=== PATIENT | female | born 2000 | race Caucasian/White ===

== ENCOUNTER 2022-02-11 10:11 | Emergency (ER) | payer OTHER, SELFPAY ==
[2022-02-11 10:18] VITALS: BP 134/92; PULSE 76; RESP 14; TEMP 36.9; O2SAT 99; BMI 27.4
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
[2022-02-11 11:02] VITALS: BP 143/96; O2SAT 99
[2022-02-11 11:49] VITALS: BP 151/88; PULSE 98; O2SAT 97
== END 2022-02-11 11:51 | disposition home or self-care (01) ==
PROVIDERS: Emergency Provider Physician Assistant; PCP Registered Nurse
DX: S13.9XXA Sprain of joints and ligaments of unspecified parts of neck, initial encounter (principal); V49.49XA Driver injured in collision with other motor vehicles in traffic accident, initial encounter
CPT/HCPCS: 72040; 99283

== ENCOUNTER 2022-03-20 16:41 | Emergency (ER) | payer OTHER, SELFPAY ==
[2022-03-20 17:19] VITALS: BP 134/90; PULSE 81; RESP 14; TEMP 36.9; O2SAT 99; BMI 29.6
--- NOTE | 2022-03-20 21:11 | USR_ITS ---
PROCEDURE INFORMATION: Exam: US Abdomen, Limited; Right Upper Quadrant Exam date and time: 03/20/2022 9:27 PM Age: 21 years old Clinical indication: Abdominal pain; Patient HX: Intermittent ruq pain x 1 month TECHNIQUE: Imaging protocol: Real time ultrasound of the abdomen with image documentation. Limited exam focused on the right upper quadrant. COMPARISON: No relevant prior studies available. FINDINGS: Liver: Normal. No masses. Gallbladder: Contracted gallbladder. No gallstones. There is no gallbladder wall thickening. Negative sonographic Huber sign. Biliary ducts: Normal. No stones. No dilation. Pancreas: Visualized pancreas is unremarkable. Right kidney: Right kidney measures 10.1 cm in length. No mass. No hydronephrosis. US/US gall bladder [id number] IMPRESSION: No acute findings.
--- NOTE | 2022-03-20 21:12 | ED_ITS ---
HPI - Nausea/Vomiting/Diarrhea General: Chief complaint: Nausea/Vomiting/Diarrhea Stated complaint: Abd pains with lower back pains N/V Time Seen by Provider: 03/20/22 21:09 History of Present Illness: 21-year-old female comes in today with complaints of epigastric pain radiating to her back. This is been going on for about 2 to 3 weeks. Patient was seen by a primary care provider in [place] and recommended that she have an gallbladder ultrasound done. Patient did not think that she could wait 2 weeks to have the ultrasound and came to the emergency room for further evaluation and treatment. Patient appears nontoxic. Patient appears in mild pain. Patient has no history of medical problems or routine medications. Patient has tried some [id number] Lactaid and Gas-X with minimal relief of discomfort. Associated nausea: Yes Associated symtoms: Reports nausea Review of Systems General: Reports: 10 or more systems reviewed and unremarkable except in HPI and below GI: Reports: abdominal pain and nausea : Denies: difficulty voiding Physical Exam Const: COMMON NORMALS: alert Neck/C-Spine: COMMON NORMALS: full ROM Chest: COMMONS NORMALS: normal inspection of the chest and normal palpation of the breasts BREAST/AXILLA PALPATION: Yes normal palpation of the breasts Resp: COMMON NORMALS: normal respiratory effort and clear to auscultation bilaterally AUSCULTATION: clear to auscultation bilaterally Cardio: COMMON NORMALS: regular rate and regular rhythm RATE: regular rate RHYTHM: regular rhythm GI: COMMON NORMALS: Soft to palpation PALPATION: Yes Soft to palpation and Yes Tenderness to palpation present (GI) (Midepigastric) : COMMON NORMALS: Yes no CVA tenderness BLADDER/KIDNEY EXAM: Yes no CVA tenderness Back/Pelvis: COMMON NORMALS: no CVA tenderness Extremity: COMMON NORMALS: normal to inspection Neuro: SENSORIUM/ORIENTATION: Yes alert Skin: COMMON NORMALS: no rashes or lesions noted GENERAL SKIN EXAM: no rashes or lesions noted Course Vital Signs: Vital signs: Vital Signs Temperature 98.4 F 03/20/22 17:19 Pulse Rate 78 03/20/22 23:24 Respiratory Rate 18 03/20/22 23:24 Blood Pressure 140/88 03/20/22 23:24 Pulse Oximetry 98 03/20/22 23:24 MDM - Nausea/Vomiting/Diarrhea Medical Decision Making 21-year-old female comes in today with some midepigastric discomfort. Patient reports symptoms for the last month with episodes of diarrhea too abdomen is soft with some epigastric tenderness. Vital signs are normal. Patient appears nontoxic. Patient appears in no pain. Differential diagnosis includes but not limited to cholecystitis, gallbladder disease, gastritis, esophagitis, hiatal hernia. Laboratory values were unremarkable. Ultrasound the gallbladder was normal. Reviewed exam with patient recommended treatment with famotidine 20 mg twice a day for the next 4 weeks for trial. Recommend continue with care with primary provider and consider further treatment options. No sign of acute surgical abdomen is noted. Lab Data : 03/20/22 21:16 03/20/22 21:16 Radiology Impressions Gallbladder Ultrasound 03/20/22 21:11 IMPRESSION: No acute findings. Laboratory Results WBC 10.7 10^3/uL (4.0-10.0) H 03/20/22 21:16 RBC 4.40 10^6/uL (4.1-5.3) 03/20/22 21:16 Hgb 12.5 g/dL (11.5-15.3) 03/20/22 21:16 Hct 38.4 % (37.0-47.0) 03/20/22 21:16 MCV 87.3 fl (81-99) 03/20/22 21:16 MCH 28.4 pg (28.0-34.0) 03/20/22 21:16 MCHC 32.6 g/dL (30.0-36.0) 03/20/22 21:16 RDW 12.1 % (12.1-15.1) 03/20/22 21:16 Plt Count 375 10^3/cmm (130-400) 03/20/22 21:16 MPV 10.3 fL (7.4-10.4) 03/20/22 21:16 Neut % (Auto) 47.5 % 03/20/22 21:16 Lymph % (Auto) 37.5 % 03/20/22 21:16 [place] % (Auto) 6.7 % 03/20/22 21:16 Eos % (Auto) 7.5 % 03/20/22 21:16 Baso % (Auto) 0.5 % 03/20/22 21:16 Neut # (Auto) 5.09 10^3/uL (1.8-7.7) 03/20/22 21:16 Lymph # (Auto) 4.0 10^3/uL (0.8-4.8) 03/20/22 21:16 [place] # (Auto) 0.7 10^3/uL (0.2-0.9) 03/20/22 21:16 Eos # (Auto) 0.8 10^3/uL (0.0-0.8) 03/20/22 21:16 Baso # (Auto) 0.1 10^3/uL (0.0-0.1) 03/20/22 21:16 Nucleated RBC % (auto) 0 % 03/20/22 21:16 Nucleated RBCs # 0.0 /100WBC 03/20/22 21:16 Sodium 139 mmol/L (136-145) 03/20/22 21:16 Potassium 3.5 mmol/L (3.5-5.1) 03/20/22 21:16 Chloride 102 mmol/L (98-107) 03/20/22 21:16 Carbon Dioxide 26 mmol/L (22-29) 03/20/22 21:16 Anion Gap 14.5 (5-19) 03/20/22 21:16 BUN 8 mg/dL (6-20) 03/20/22 21:16 Creatinine 0.8 mg/dL (0.5-0.9) 03/20/22 21:16 GFR Calculation 88.9 mL/min (90-130) L 03/20/22 21:16 Glucose 105 mg/dL (65-115) 03/20/22 21:16 Calculated Osmolality 287 mOsm/kg (285-295) 03/20/22 21:16 Calcium 9.5 mg/dL (8.5-10.5) 03/20/22 21:16 Total Bilirubin 0.2 mg/dL (0.15-1.2) 03/20/22 21:16 AST 25 U/L (0-32) 03/20/22 21:16 ALT 18 U/L (0-33) 03/20/22 21:16 Alkaline Phosphatase 62 IU/L (35-105) 03/20/22 21:16 Total Protein 7.9 g/dL (6.6-8.7) 03/20/22 21:16 Albumin 5.0 g/dL (3.5-5.2) 03/20/22 21:16 Globulin 2.9 g/dL (1.3-4.6) 03/20/22 21:16 Lipase 32 U/L (13-60) 03/20/22 21:16 Lipase Cancelled 03/20/22 21:16 HCG, Qual Negative (Negative) 03/20/22 21:16 Urine Color Yellow (Yellow) 03/20/22 22:37 Urine Appearance Clear (CLEAR) 03/20/22 22:37 Urine pH 6 (5-7) 03/20/22 22:37 Ur Specific [place] 1.020 (1.005-1.030) 03/20/22 22:37 Urine Protein Neg (Negative) 03/20/22 22:37 Urine Glucose (UA) Norm (Normal) 03/20/22 22:37 Urine Ketones Negative (Negative) 03/20/22 22:37 Urine Blood 3+ (Negative) H 03/20/22 22:37 Urine Nitrate Negative (Negative) 03/20/22 22:37 Urine Bilirubin Neg (Negative) 03/20/22 22:37 Urine Urobilinogen Norm mg/dL (Negative) 03/20/22 22:37 Ur Leukocyte Esterase Negative (Negative) 03/20/22 22:37 Urine RBC 0-4 /hpf (0-2) H 03/20/22 22:37 Urine WBC 0-4 /hpf (0-5) H 03/20/22 22:37 Ur Squamous Epith Cells 0-4 /hpf (0-5) H 03/20/22 22:37 Amorphous Sediment Not Reportable 03/20/22 22:37 Urine Bacteria Trace /hpf (NONE) 03/20/22 22:37 Discharge Plan Discharge Patient Disposition: Home Clinical Impression: Abdominal pain Qualifiers: Abdominal location: epigastric Qualified Code(s): R10.13 - Epigastric pain Condition: Stable Prescriptions: New famotidine 20 mg tablet 20 mg PO BID 28 Days Qty: 56 0RF No Action bupropion HCl 150 mg tablet sustained-release 12 hr 150 mg PO QAM 0RF Discharge Orders: Discharge ED (Routine); Ordered 03/20/22 Ordered By: Teto Shaw Referrals: Chayo Spencer FNP [Primary Care Provider] - Discharge Diet: Usual diet Discharge Activity: Increase activity as tolerated Patient Instructions: Abdominal Pain (ED) Activity Restrictions/Additional Instructions: Home and rest. Drink plenty of fluids. Continue with routine care. Add famot idine 20 mg 1 tablet twice a day for the next 4 weeks. He should see improvement within the next 5 to 7 days for symptoms. If symptoms persist talk to your primary care and they may switch medications for better coverage. Return to ER for new concerns, or worsening symptoms such as high fever greater than 100.4, uncontrolled abdominal pain, blood in vomit or stool. Coding Level of Care Code ED Product/Industry Consultant for Carlin Fwd Exam Comprehensive
[2022-03-20 21:32] VITALS: BP 143/92; PULSE 70; RESP 18; O2SAT 99
[2022-03-20 21:33] LABS: Basophils # 0.1 10^3/uL (0.0-0.1); Basophils % 0.5 %; Eosinophils # 0.8 10^3/uL (0.0-0.8); Eosinophils % 7.5 %; Hematocrit 38.4 % (37.0-47.0); Hemoglobin 12.5 g/dL (11.5-15.3); Lymphocytes % 37.5 %; Mean Corpuscular HGB Conc 32.6 g/dL (30.0-36.0); Mean Corpuscular Hemoglobin 28.4 pg (28.0-34.0); Mean Corpuscular Volume 87.3 fl (81-99); Mean Platelet Volume 10.3 fL (7.4-10.4); Monocytes # 0.7 10^3/uL (0.2-0.9); Monocytes % 6.7 %; Neutrophils # 5.09 10^3/uL (1.8-7.7); Neutrophils % 47.5 %; Nucleated Red Blood Cells % 0 %; Platelet Count 375 10^3/cmm (130-400); Red Cell Distribution Width 12.1 % (12.1-15.1); White Blood Count 10.7 10^3/uL (4.0-10.0)
[2022-03-20 22:02] LABS: HCG, Serum Qual Negative (Negative)
[2022-03-20 22:10] LABS: Alanine Aminotransferase 18 U/L (0-33); Alkaline Phosphatase 62 IU/L (35-105); Anion Gap 14.5 (5-19); Aspartate Amino Transferase 25 U/L (0-32); Blood Urea Nitrogen 8 mg/dL (6-20); Calcium 9.5 mg/dL (8.5-10.5); Carbon Dioxide 26 mmol/L (22-29); Chloride 102 mmol/L (98-107); Globulin 2.9 g/dL (1.3-4.6); Glomerular Filtration Rate 88.9 mL/min (90-130); Glucose 105 mg/dL (65-115); Lipase 32 U/L (13-60); Osmolality Calculated 287 mOsm/kg (285-295); Potassium 3.5 mmol/L (3.5-5.1); Sodium 139 mmol/L (136-145); Total Bilirubin 0.2 mg/dL (0.15-1.2); Total Protein 7.9 g/dL (6.6-8.7)
[2022-03-20 22:40] VITALS: BP 143/92; RESP 20; O2SAT 98
[2022-03-20 23:10] LABS: Add Urine Culture? No; Add Urine Microscopic? YES; Bacteria Urine TRACE /hpf; Bilirubin Urine Neg (Negative); Blood Urine 3+ (Negative); Glucose Urine UA Norm (Normal); Ketones Urine Negative (Negative); Leukocyte Esterase Urine Negative (Negative); Nitrate Urine Negative (Negative); Protein Urine Neg (Negative); RBC Urine 0-4 /hpf (0-2); Squamous Epithelial Cell Urine 0-4 /hpf (0-5); Urine Appearance Clear (CLEAR); Urine Color Yellow (Yellow); Urobilinogen Urine Norm (Negative); WBC Urine 0-4 /hpf (0-5); pH Urine 6 (5-7)
[2022-03-20] MEDS: famotidine 20 mg/2 mL INJ IVP (23:12)
[2022-03-20 23:24] VITALS: BP 140/88; PULSE 78; RESP 18; O2SAT 98
== END 2022-03-20 23:26 | disposition home or self-care (01) ==
PROVIDERS: Emergency Medicine; Emergency Provider Nurse Practitioner Family; PCP Registered Nurse
DX: R10.13 Epigastric pain (principal)
CPT/HCPCS: 76705; 80053; 81001; 83690; 84703; 85025; 96374; 99285; J3490

== ENCOUNTER 2022-09-29 07:47 | Outpatient (CLI) | payer OTHER, SELFPAY ==
--- NOTE | 2022-09-29 08:14 | NM_ITS ---
WS: [id number] NUCLEAR MEDICINE HIDA SCAN WITH GALLBLADDER EJECTION FRACTION HISTORY: GENERALIZED ABDOMINAL PAIN COMPARISON: Gallbladder ultrasound 03/20/2022 TECHNIQUE: The patient was intravenously injected with 7.6 mCi of TC99m Mebrofenin. Immediate imaging over the right upper quadrant was followed by 5 minute image and additional images for a total of 60 minutes. Normal uptake of radiotracer throughout the liver. Activity identified in the gallbladder at 10 minutes and well distended by 60 minutes. Activity in the proximal small bowel was not evident at 60 minutes. Good washout of the radiotracer f rom the liver by 60 minutes. The patient then drank 8 ounces of Ensure Plus. Ejection fraction at 60 minutes was 82%. Normal GB ej ection fraction is 35-75%. Post fatty meal symptoms: None. NM/NM hepatobiliary w phar* [id number] IMPRESSION: 1. Normal HIDA scan. 2. Normal gallbladder ejection fraction.
== END 2022-09-29 07:48 | disposition home or self-care (01) ==
PROVIDERS: PCP Registered Nurse; Visit Provider Registered Nurse
DX: R11.0 Nausea (principal); R14.0 Abdominal distension (gaseous); R10.84 Generalized abdominal pain
CPT/HCPCS: 78227; A9537

== ENCOUNTER 2024-03-25 13:25 | Outpatient (REF) | payer OTHER, SELFPAY | END 2024-03-25 13:26 | disposition home or self-care (01) | LOC: LAB 13:25 | PROVIDERS: PCP Registered Nurse | DX: Z01.89 Encounter for other specified special examinations (principal) | CPT/HCPCS: 86787 ==

== ENCOUNTER 2024-10-25 17:35 | Emergency (ER) | payer OTHER, SELFPAY ==
[2024-10-25 17:38] VITALS: BP 103/73; PULSE 73; RESP 16; TEMP 36.4; O2SAT 100; BMI 24.0
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
[2024-10-25 18:52] LABS: Bilirubin Urine Negative (Negative); Blood Urine 2+ (Negative); Glucose Urine UA Negative (Normal); Ketones Urine Trace (Negative); Leukocyte Esterase Urine Trace (Negative); Nitrate Urine Negative (Negative); Protein Urine Trace (Negative); Specific Gravity, Urine 1.027 (1.005-1.030); Urine Appearance Cloudy (CLEAR); Urine Color Yellow (Yellow)
[2024-10-25 18:55] LABS: HCG Qualitative Urine. Negative (Negative)
[2024-10-25 18:59] LABS: Amphetamines Screen Urine Negative (Negative); Barbiturates Screen Urine Negative (Negative); Benzodiazepines Screen Urine Negative (Negative); Cocaine Screen Urine Negative (Negative); Opiate Screen Urine Negative (Negative); PCP Screen Urine Negative (Negative); THC Screen Urine Negative (Negative)
[2024-10-25 19:02] LABS: UA Manual Slide Review YES; UA Slide Review UA Slide Review Perf
[2024-10-25 19:03] LABS: Add Urine Microscopic? YES
[2024-10-25 19:04] LABS: Bacteria Urine 1+ /hpf; Mucus Urine TRACE /hpf; RBC Urine 0-4 /hpf (0-2); WBC Urine 0-4 /hpf (0-5)
[2024-10-25 19:05] LABS: Add Urine Culture? No
== END 2024-10-25 18:13 | disposition home or self-care (01) ==
PROVIDERS: Emergency Medicine; Emergency Provider Physician Assistant; PCP Registered Nurse
DX: Z04.1 Encounter for examination and observation following transport accident (principal); Z03.89 Encounter for observation for other suspected diseases and conditions ruled out
CPT/HCPCS: 80306; 81001; 81025; 99283

== ENCOUNTER → 2025-05-02 10:18 | Outpatient (BNVA) | payer OTHER, SELFPAY | PROVIDERS: PCP Registered Nurse; Visit Provider Internal Medicine Cardiovascular Disease | DX: R00.2 Palpitations (principal) | CPT/HCPCS: 93005 ==

== ENCOUNTER 2025-05-09 09:16 | Outpatient (CLI) | payer OTHER, SELFPAY ==
[2025-05-09 11:15] LABS: Anion Gap 18.6 (5-19); Blood Urea Nitrogen 11 mg/dL (6-20); Calcium 9.4 mg/dL (8.5-10.5); Carbon Dioxide 23 mmol/L (22-29); Chloride 104 mmol/L (98-107); Cholesterol 188 mg/dL (0-200); Glucose 94 mg/dL (65-115); HDL Cholesterol 55 mg/dL (60-100); Osmolality Calculated 291 mOsm/kg (285-295); Potassium 4.6 mmol/L (3.5-5.1); Sodium 141 mmol/L (136-145); Triglycerides 81 mg/dL (0-150)
== END 2025-05-09 09:17 | disposition home or self-care (01) ==
PROVIDERS: PCP Registered Nurse; Visit Provider Internal Medicine Cardiovascular Disease
DX: M79.89 Other specified soft tissue disorders (principal); Z86.79 Personal history of other diseases of the circulatory system; R00.2 Palpitations
CPT/HCPCS: 36415; 80048; 80061